=== PATIENT | female | born 2005 | race Caucasian/White ===

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

== ENCOUNTER 2023-02-05 19:26 | Emergency (ER) | payer OTHER, SELFPAY ==
[2023-02-05 19:45] VITALS: BP 139/76; PULSE 116; RESP 19; TEMP 36.9; O2SAT 99; BMI 31.3
[2023-02-05 19:48] LABS: Adenovirus,PCR Not Detected (NotDetected); Bordetella Pertussis Not Detected (NotDetected); Chlamydophila Pneumoniae, PCR Not Detected (NotDetected); Coronavirus 19, PCR Not Detected (NotDetected); Coronavirus 229E Not Detected (NotDetected); Coronavirus NL63 Not Detected (NotDetected); Coronavirus OC43 Not Detected (NotDetected); Coronovirus HKU1,PCR Not Detected (NotDetected); Human Metapneumovirus Not Detected (NotDetected); Influenza A, PCR Not Detected (NotDetected); Influenza AH1, 2009 Not Detected (NotDetected); Influenza AH1, PCR Not Detected (NotDetected); Influenza AH3,PCR Not Detected (NotDetected); Influenza B, PCR Not Detected (NotDetected); Mycoplasma Pneumoniae, PCR Not Detected (NotDetected); Parainfluenza 1, PCR Not Detected (NotDetected); Parainfluenza 2, PCR Not Detected (NotDetected); Parainfluenza 3, PCR Not Detected (NotDetected); Parainfluenza 4, PCR Not Detected (NotDetected); Respiratory Syncytial Virus Not Detected (NotDetected); Rhinovirus/Enterovirus Not Detected (NotDetected)
--- NOTE | 2023-02-05 19:49 | EXP.UTC ---
Discharge Plan Disposition Patient Disposition: Home, Self-Care Condition: Good Prescriptions Prescriptions: New ondansetron 4 mg tablet,disintegrating 4 mg PO Q8H PRN (Reason: nausea and vomiting) Qty: 6 0RF No Action escitalopram oxalate 20 mg tablet 20 mg PO DAILY Referrals Follow up/Referrals: Nicole Au PA [Primary Care Provider] - See instructions Activity Restrictions/Add. Instructions Additional Instructions/Restrictions: *Monitor Temp, Over the counter Motrin or Tylenol as directed/as needed Tylenol every 4 hours and Motrin every 6 hours (as long as your family doctor has told you that you can take it) for fever or pain. and straight to ER if unable to lower temp less than 101.0 after medication given *Warm salt water gargles may help to soothe the throat *Throat Lozenges? *Warm fluids like tea with honey may help to soothe the throat? *Sleep elevated *Humidifier/Vaporizer Your throat swab was sent for culture. Those results are typically sent to your primary care. Be sure to follow up in 2-3 days with your family doctor/primary care physician if no improvement so they can review those result and treat if necessary. If you don?t have a primary care doctor, I recommend you get one but in the mean time, you will have to return to a walk in clinic Follow up IMMEDIATELY for new or worsening symptoms or no Noticeable improvement over the next 48-72 hours. 911 for difficulty breathing or swallowing You were tested for today for Upper Respiratory Panel with COVID19 your test result should be back in the next 24hrs You may check your results on the [facility] Clinical Impressions Clinical Impression: Viral syndrome Stand Alone Forms Stand Alone Forms: Work/School Release Instructions Patient Instructions: DI for Viral Syndrome, DI for Nausea -- Adult Discharge ED Provider: Yolanda Magana [facility] [place] HPI General Stated complaint: Body aches,YEPEZ,vomiting,hot & cold Time Seen by Provider: 02/05/23 19:49 History of Present Illness Provider Complaint: Patient states that she started earlier with body aches, chills, scratchy throat and aching all over State that this evening she started with nausea and feeling like she is going to vomit so mother brought her in wanting to get her checked out Related Data Home Medications Medication Instructions Recorded Confirmed escitalopram oxalate 20 mg tablet 20 mg PO DAILY Anxiety 02/05/23 02/05/23 Previous Rx's Medication Instructions Recorded ondansetron 4 mg disintegrating 4 mg PO Q8H PRN nausea and 02/05/23 tablet vomiting #6 tabs Allergies Allergy/AdvReac Type Severity Reaction Status Date / Time chlorpheniramine Allergy Verified 01/16/23 18:12 [From Triaminic Cold and Cough] dextromethorphan Allergy Verified 01/16/23 18:12 [From Triaminic Cold and Cough] pseudoephedrine Allergy Verified 01/16/23 18:12 [From Triaminic Cold and Cough] [facility] Disclaimer: The information contained in this section may have been updated after the patient was seen, as this information can be updated by other users. Medical History Generalized anxiety disorder Generalized social phobia Social History Smoking Status: Never smoker alcohol intake: never substance use type: denies use current occupational status: student and other Travel in the last 8 weeks: None household members: family housing: house number of children: 0 ROS Obtained: Yes All systems reviewed & no additional complaints except as documented and Yes Systems reviewed as appropriate & no additional complaints except as documented Constitutional Constitutional: Reports system reviewed and no additional complaints, except as documented, Reports as per HPI, Reports body ache
[2023-02-05 20:19] LABS: UTC Pregnancy Test, Urine Negative (Negative)
[2023-02-05 20:20] LABS: UTC Strep Screen (Rapid) Negative (Negative)
[2023-02-05 20:39] VITALS: BP 139/76; PULSE 116; RESP 19; TEMP 36.9; O2SAT 99
== END 2023-02-05 20:41 | disposition home or self-care (01) ==
PROVIDERS: Emergency Provider Nurse Practitioner; PCP Physician Assistant
DX: B34.9 Viral infection, unspecified (principal); R51.9 Headache, unspecified; R11.0 Nausea; F41.9 Anxiety disorder, unspecified; F40.11 Social phobia, generalized
CPT/HCPCS: 81025; 87581; 87632; 87798; 87880; 99212; 99214; G0463

== ENCOUNTER 2023-02-06 02:16 | Emergency (ER) | payer OTHER, SELFPAY ==
[2023-02-06 02:17] VITALS: BP 124/75; PULSE 105; RESP 19; TEMP 36.7; O2SAT 97; BMI 38.3
--- NOTE | 2023-02-06 02:37 | HMH.EDGENADL ---
Discharge Plan Disposition Patient Disposition: Home, Self-Care Condition: Good Prescriptions Prescriptions: No Action escitalopram oxalate 20 mg tablet 20 mg PO DAILY ondansetron 4 mg tablet,disintegrating 4 mg PO Q8H PRN (Reason: nausea and vomiting) Qty: 6 0RF Referrals Follow up/Referrals: Nicole Au PA [Primary Care Provider] - See instructions Activity Restrictions/Add. Instructions Additional Instructions/Restrictions: You were evaluated in the emergency department today. Please follow-up with your primary care provider over the next 2 days. Return to the emergency department for any new or worsening symptoms, such as worsening headache, vision changes, numbness, tingling, or other concerns. Clinical Impressions Clinical Impression: Migraine Qualifiers: Migraine type: unspecified Status migrainosus presence: without status migrainosus Intractability: not intractable Qualified Code(s): G43.909 - Migraine, unspecified, not intractable, without status migrainosus Instructions Patient Instructions: DI for Migraine Discharge ED Provider: Miriam Lugo General Adult HPI General Chief complaint: Headache Stated complaint: migraine Time Seen by Provider: 02/06/23 02:18 History of Present Illness HPI narrative: This patient is a 17-year-old female with a history of anxiety, autism, and migraines presenting to the emergency department for evaluation with concern for migraine headache. Patient reports that she had gradual onset of a migraine after evaluation at [facility] here today for upper respiratory symptoms. Family at home have all had similar symptoms. She was nauseated there, so she was given oral Zofran. After this, she notes that she had gradual onset of headache that is in the front of her head radiating down to her jaw. She denies any vision changes, numbness, tingling, unilateral weakness, or other concerns. She is still nauseated. Related Data Home Medications Medication Instructions Recorded Confirmed escitalopram oxalate 20 mg tablet 20 mg PO DAILY Anxiety 02/05/23 02/05/23 Previous Rx's Medication Instructions Recorded ondansetron 4 mg disintegrating 4 mg PO Q8H PRN nausea and 02/05/23 tablet vomiting #6 tabs Allergies Allergy/AdvReac Type Severity Reaction Status Date / Time chlorpheniramine Allergy Verified 01/16/23 18:12 [From Triaminic Cold and Cough] dextromethorphan Allergy Verified 01/16/23 18:12 [From Triaminic Cold and Cough] pseudoephedrine Allergy Verified 01/16/23 18:12 [From Triaminic Cold and Cough] [facility] Disclaimer: The information contained in this section may have been updated after the patient was seen, as this information can be updated by other users. Medical History Generalized anxiety disorder Generalized social phobia Social History Smoking Status: Never smoker alcohol intake: never substance use type: denies use current occupational status: student and other Travel in the last 8 weeks: None household members: family housing: house number of children: 0 ROS Obtained: Yes All systems reviewed & no additional complaints except as documented Physical Exam General General appearance: alert and in no apparent distress Head Head exam: atraumatic and normocephalic Eye Eye exam: Present normal appearance, PERRL and EOMI; Absent conjunctival redness ENT ENT exam: Present normal exam, normal oropharynx and mucous membranes moist Neck Neck exam: Present normal inspection, full ROM and trachea midline; Absent tenderness or meningismus Chest Chest inspection: Present normal inspection and symmetric chest wall rise; Absent tenderness Respiratory Respiratory exam: Present normal lung sounds bilaterally; Absent respiratory distress, wheezes, stridor or accessory muscle us
[2023-02-06 03:51] VITALS: BP 124/75; PULSE 105; RESP 19; TEMP 36.7; O2SAT 97
== END 2023-02-06 03:50 | disposition home or self-care (01) ==
PROVIDERS: Emergency Provider Emergency Medicine; PCP Physician Assistant
DX: G43.909 Migraine, unspecified, not intractable, without status migrainosus (principal); F84.0 Autistic disorder; F41.1 Generalized anxiety disorder
CPT/HCPCS: 96361; 96374; 96375; 99284

== ENCOUNTER 2023-06-28 10:53 | Emergency (ER) | payer OTHER, SELFPAY ==
[2023-06-28 10:54] VITALS: BP 116/66; PULSE 93; RESP 19; TEMP 36.9; O2SAT 98; BMI 37.0
--- NOTE | 2023-06-28 11:19 | EXP.UTC ---
Discharge Plan Disposition Patient Disposition: Home, Self-Care Condition: Good Prescriptions Prescriptions: No Action escitalopram oxalate 20 mg tablet 20 mg PO DAILY Qty: 90 0RF ondansetron 4 mg tablet,disintegrating 4 mg PO Q8H PRN (Reason: nausea and vomiting) Qty: 6 0RF Referrals Follow up/Referrals: Nicole Au PA [Primary Care Provider] - See instructions Activity Restrictions/Add. Instructions Additional Instructions/Restrictions: *Monitor Temp, Over the counter Motrin or Tylenol as directed/as needed Tylenol every 4 hours and Motrin every 6 hours (as long as your family doctor has told you that you can take it) for fever or pain. and straight to ER if unable to lower temp less than 101.0 after medication given *Warm salt water gargles may help to soothe the throat *Throat Lozenges? *Warm fluids like tea with honey may help to soothe the throat? *Sleep elevated *Humidifier/Vaporizer Your throat swab was sent for culture. Those results are typically sent to your primary care. Be sure to follow up in 2-3 days with your family doctor/primary care physician if no improvement so they can review those result and treat if necessary. If you don?t have a primary care doctor, I recommend you get one but in the mean time, you will have to return to a walk in clinic Follow up IMMEDIATELY for new or worsening symptoms or no Noticeable improvement over the next 48-72 hours. 911 for difficulty breathing or swallowing Clinical Impressions Clinical Impression: Viral upper respiratory infection Instructions Patient Instructions: DI for Viral Upper Respiratory Infection -- Adult Discharge ED Provider: Yolanda Magana [facility] [place] HPI General Stated complaint: st, body ache, congestion, rincon Mode of Arrival: Ambulatory Source of Information: Patient Limitations: No Limitations Time Seen by Provider: 06/28/23 11:19 Description of Symptoms (Recalled from Triage Doc. by RN): Patient complaint of sore throat, body aches, and headache for 2 days. HEENT Symptoms (Recalled from RN notes): Yes Resp Symptoms (Recalled from RN notes): No Skin Symptoms (Recalled from RN notes): No MS Symptoms (Recalled from RN notes): No Functional Status (Recalled from RN notes): wnl History of Present Illness Provider Complaint: Patient states that for the last day or so she has been having sore throat, body aches, headache and chills States that last night her throat started hurting worse so she came in to get checked Related Data Previous Rx's Medication Instructions Recorded ondansetron 4 mg disintegrating 4 mg PO Q8H PRN nausea and 02/05/23 tablet vomiting #6 tabs escitalopram oxalate 20 mg tablet 20 mg PO DAILY Anxiety #90 tabs 06/07/23 Allergies Allergy/AdvReac Type Severity Reaction Status Date / Time chlorpheniramine Allergy Verified 04/17/23 10:06 [From Triaminic Cold and Cough] dextromethorphan Allergy Verified 04/17/23 10:06 [From Triaminic Cold and Cough] pseudoephedrine Allergy Verified 04/17/23 10:06 [From Triaminic Cold and Cough] Worker's Comp Is this a Worker's Comp case?: No [facility] Disclaimer: The information contained in this section may have been updated after the patient was seen, as this information can be updated by other users. Medical History Generalized anxiety disorder Generalized social phobia Social History Smoking Status: Never smoker alcohol intake: never substance use type: denies use current occupational status: student and other Travel in the last 8 weeks: None household members: family housing: house number of children: 0 ROS Obtained: Yes All systems reviewed & no additional complaints except as documented and Yes Systems reviewed as appropriate & no additional complaints except as documented Constitutional Constitutional: Reports system reviewed and no additional complaints, except as documented, Reports as per HPI, Reports body ache and Reports chills ENT Ears, Nose, Mouth, and Throat: Reports system reviewed and no additional complaints, except as documented, Reports as per HPI and Reports sore throat Cardiovascular Cardiovascular: Reports system reviewed and no additional complaints, except as documented and Reports as per HPI Respiratory Respiratory: Reports system reviewed and no additional complaints, except as documented and Reports as per HPI Gastrointestinal Gastrointestingal: Reports system reviewed and no additional complaints, except as documented and as per HPI Physical Exam General General appearance: alert and in no apparent distress ENT ENT exam: Present mucous membranes moist Expanded ENT Exam Nose exam: Absent sinus tenderness Throat exam: Present tonsillar erythema Respiratory Respiratory exam: Present normal lung sounds bilaterally; Absent respiratory distress or wheezes Cardiovascular Cardiovascular exam: Present regular rate, normal rhythm and normal heart sounds Abdominal Exam Abdominal exam: Present soft and normal bowel sounds; Absent distention or tenderness Neurological Exam Neurological exam: Present alert, oriented X3 and normal gait Medical Decision Making Alex Inquiry Pt receiving controlled substance: No Alex was queried for this patient: No Vital Signs: 06/28/23 10:54 Temperature 98.5 F Temperature Source Oral Pulse Rate [Radial] 93 H Respiratory Rate 19 Blood Pressure [Right Arm] 116/66 Blood Pressure Mean [Right Arm] 82 Blood Pressure Source [Right Arm] Automatic Cuff Blood Pressure Position [Right Arm] Sitting 02 Sat by Pulse Oximetry 98 Oxygen Delivery Method Room Air Lab Data Lab results reviewed: Yes I reviewed the patient's lab results.
[2023-06-28 11:32] LABS: UTC Influenza A Antigen Negative (Negative); UTC Influenza B Antigen Negative (Negative); UTC Strep Screen (Rapid) Negative (Negative)
[2023-06-28 11:46] VITALS: BP 116/66; PULSE 93; RESP 19; TEMP 36.9; O2SAT 98
== END 2023-06-28 11:47 | disposition home or self-care (01) ==
PROVIDERS: Emergency Provider Nurse Practitioner; PCP Physician Assistant
DX: R51.9 Headache, unspecified (principal); J06.9 Acute upper respiratory infection, unspecified; R07.0 Pain in throat; R09.81 Nasal congestion; M79.18 Myalgia, other site; R68.83 Chills (without fever); B34.9 Viral infection, unspecified
CPT/HCPCS: 87804; 87880; 99212; 99213; G0463

== ENCOUNTER 2023-10-11 11:50 | Emergency (ER) | payer OTHER, SELFPAY ==
[2023-10-11 12:00] VITALS: BP 111/62; PULSE 77; RESP 18; TEMP 36.8; O2SAT 96; BMI 39.4
[2023-10-11 12:14] LABS: Apearance,Urine Cloudy (Clear); Color,Urine Yellow (Yellow)
[2023-10-11 12:15] LABS: Bilirubin,Urine Negative (Negative); Blood, Urine 3+ (Negative); Glucose,Urine (UA) Negative (Negative); Ketones,Urine Negative (Negative); Protein,Urine Negative (Negative); UTC Leukocyte Esterase,Urine 3+ (Negative); UTC Nitrate,Urine Negative (Negative); Urobilinogen,Urine 0.2 EU/dl (0.2)
--- NOTE | 2023-10-11 12:17 | EXP.UTC ---
Discharge Plan Disposition Patient Disposition: Home, Self-Care Condition: Good Prescriptions Prescriptions: New phenazopyridine [Pyridium] 200 mg tablet 200 mg PO Q8H 2 Days Qty: 6 0RF sulfamethoxazole-trimethoprim [Bactrim DS] 800-160 mg Tablet 1 tab PO BID Qty: 14 0RF cephalexin 500 mg capsule 500 mg PO QID 7 Days Qty: 28 0RF mupirocin 2 % ointment 1 applic topical TID 7 Days Qty: 15 0RF No Action escitalopram oxalate 20 mg tablet 20 mg PO DAILY Qty: 90 1RF Referrals Follow up/Referrals: Nicole Au PA [Primary Care Provider] - See instructions Activity Restrictions/Add. Instructions Additional Instructions/Restrictions: Drink plenty of fluids. Take tylenol or ibuprofen for pain or fever. Take the medications as directed. Follow up with your regular doctor. GO TO THE ER FOR ANY WORSENING SYMPTOMS Apply the mupirocin ointment (bactroban) to your ear lobe as directed. The pyridium will make your urine turn orange, this is an expected side effect. It will stain your clothes if it comes into contact with them. We will culture the urine. That will tell what bacteria is causing your infection and which antibiotics will treat it best. Sometimes the first antibiotic we prescribe turns out to not work against different bacteria. So, make sure you follow up within 3 days if you are not getting better. Clinical Impressions Clinical Impression: UTI (urinary tract infection), Cervical adenopathy Instructions Patient Instructions: Urine Culture, DI for Urinary Tract Infection (UTI), DI for Lymphadenopathy, Phenazopyridine Discharge ED Provider: Ilya Murrell [facility] [place] HPI General Stated complaint: pain when urinating, knot behind right ear Mode of Arrival: Ambulatory Source of Information: Patient Limitations: No Limitations Time Seen by Provider: 10/11/23 12:17 Description of Symptoms (Recalled from Triage Doc. by RN): Pt's symptoms painful urination, pelvic pressure, and lumps behind right ear. HEENT Symptoms (Recalled from RN notes): Yes Resp Symptoms (Recalled from RN notes): No Skin Symptoms (Recalled from RN notes): No MS Symptoms (Recalled from RN notes): No Functional Status (Recalled from RN notes): n/a History of Present Illness Provider Complaint: She states that for the past 3 days she has had low back pain, urinary frequency, and dysuria. She also states that she has 2 enlarged lymph nodes on the right side of her neck just below her ear. These have been present for the past 5 days. Related Data Previous Rx's Medication Instructions Recorded escitalopram oxalate 20 mg tablet 20 mg PO DAILY Anxiety #90 tabs 09/11/23 cephalexin 500 mg capsule 500 mg PO QID 7 days #28 caps 10/11/23 mupirocin 2 % topical ointment 1 applic topical TID 7 days #15 10/11/23 grams phenazopyridine 200 mg tablet 200 mg PO Q8H 2 days #6 tabs 10/11/23 (Pyridium) sulfamethoxazole 800 1 tab PO BID #14 tabs 10/11/23 mg-trimethoprim 160 mg tablet (Bactrim DS) Allergies Allergy/AdvReac Type Severity Reaction Status Date / Time chlorpheniramine Allergy Verified 10/11/23 12:08 [From Triaminic Cold and Cough] dextromethorphan Allergy Verified 10/11/23 12:08 [From Triaminic Cold and Cough] pseudoephedrine Allergy Verified 10/11/23 12:08 [From Triaminic Cold and Cough] Worker's Comp Is this a Worker's Comp case?: No [facility] Disclaimer: The information contained in this section may have been updated after the patient was seen, as this information can be updated by other users. Medical History Generalized anxiety disorder Generalized social phobia Social History Smoking Status: Never smoker alcohol intake: never substance use type: denies use current occupational status: student and other Travel in the last 8 weeks: None household members: family housing: house number of children: 0 ROS Obtained: Yes All systems reviewed & no additional complaints except as documented Constitutional Constitutional: Denies chills and Denies fever(s) Eyes Eyes: Denies eye discharge ENT Ears, Nose, Mouth, and Throat: Denies dizziness, Denies otalgia and Denies sore throat Cardiovascular Cardiovascular: Denies chest pain Respiratory Respiratory: Denies shortness of breath, Denies chest congestion, Denies cough, Denies stridor and Denies wheezing Gastrointestinal Gastrointestingal: Denies nausea or vomiting Genitourinary Female Genitourinary: Reports as per HPI, Reports urinary frequency, Denies urinary incontinence, Reports urinary hesitancy and Reports urinary urgency Musculoskeletal Musculoskeletal: Reports as per HPI and Reports back pain Integumentary/Breasts Skin/Breast: Denies rash Neurologic Neurologic: Denies dizziness and Denies paresthesias Hematologic/Lymphatic Henatologic/Lymphatic: Reports lymphadenopathy Allergic/Immunologic Allergic/Immunologic: Denies wheezing Physical Exam General General appearance: alert and in no apparent distress Head Head exam: atraumatic and normocephalic Eye Eye exam: Present normal appearance, PERRL and EOMI ENT ENT exam: Present normal exam, mucous membranes moist, TM's normal bilaterally and normal external ear exam Neck Neck exam: Present full ROM, trachea midline, tenderness and lymphadenopathy; Absent meningismus Chest Chest inspection: Present normal inspection and symmetric chest wall rise; Absent tenderness Respiratory Respiratory exam: Present normal lung sounds bilaterally; Absent respiratory distress, wheezes or stridor Cardiovascular Cardiovascular exam: Present regular rate, normal rhythm and normal heart sounds Abdominal Exam Abdominal exam: Present soft and normal bowel sounds; Absent distention, tenderness, guarding, rebound, rigidity, incision, psoas sign, obturator sign, heel tap sign, Moreno's sign, Rovsing's sign or tenderness at McBurney's Point Extremities Exam Extremities exam: Present normal inspection, full ROM and normal capillary refill; Absent tenderness, edema, joint swelling, calf tenderness or cyanosis Back Exam Back exam: Present normal inspection and full ROM; Absent tenderness, CVA tenderness (R) or CVA tenderness (L) Neurological Exam Neurological exam: Present alert, oriented X3 and normal gait Psychiatric Psychiatric exam: Present normal affect and normal mood Skin Skin exam: Present warm, dry, intact and normal color Lymphatic Lymphatic Findings: no adenopathy Medical Decision Making Medical Records Medical records reviewed: No I reviewed the patient's medical records. Alex Inquiry Pt receiving controlled substance: No Vital Signs: 10/11/23 12:00 Temperature 98.2 F Temperature Source Oral Pulse Rate [Right Radial] 77 Respiratory Rate 18 Blood Pressure [Right Arm] 111/62 Blood Pressure Mean [Right Arm] 78 Blood Pressure Source [Right Arm] Automatic Cuff Blood Pressure Position [Right Arm] Sitting 02 Sat by Pulse Oximetry 96 Oxygen Delivery Method Room Air Lab Data Lab results reviewed: Yes I reviewed the patient's lab results. Lab Results 10/11/23 12:12: Urine Color Yellow, Urine Appearance Cloudy, Urine pH 6.0, Ur Specific [place] 1.020, Urine Protein Negative, Urine Glucose (UA) Negative, Urine Ketones Negative, Urine Blood 3+, Urine Nitrate Negative, Urine Bilirubin Negative, Urine Urobilinogen 0.2, Ur Leukocyte Esterase 3+ A Orders (Tests/Meds): ORDERS Category Date Time Status Urine Culture Stat Micro 10/11/23 12:12 Ordered
[2023-10-11 12:59] VITALS: BP 111/62; PULSE 77; RESP 18; TEMP 36.8; O2SAT 96
== END 2023-10-11 12:59 | disposition home or self-care (01) ==
PROVIDERS: Emergency Provider Nurse Practitioner Family; PCP Physician Assistant
DX: N39.0 Urinary tract infection, site not specified (principal); B96.1 Klebsiella pneumoniae [K. pneumoniae] as the cause of diseases classified elsewhere; M54.59 Other low back pain; R59.0 Localized enlarged lymph nodes; R30.0 Dysuria; F41.1 Generalized anxiety disorder; F40.11 Social phobia, generalized
CPT/HCPCS: 81003; 87086; 99212; 99214; G0463

== ENCOUNTER 2023-10-16 16:25 | Emergency (ER) | payer OTHER, SELFPAY ==
[2023-10-16 16:50] VITALS: BP 115/64; PULSE 101; RESP 18; TEMP 36.8; O2SAT 97; BMI 40.6
--- NOTE | 2023-10-16 16:56 | EXP.UTC ---
Discharge Plan Disposition Patient Disposition: Home, Self-Care Condition: Good Prescriptions Prescriptions: New amoxicillin-pot clavulanate 875-125 mg Tablet 1 tab PO Q12H Qty: 20 0RF No Action escitalopram oxalate 20 mg tablet 20 mg PO DAILY Qty: 90 1RF sulfamethoxazole-trimethoprim [Bactrim DS] 800-160 mg Tablet 1 tab PO BID Qty: 14 0RF cephalexin 500 mg capsule 500 mg PO QID 7 Days Qty: 28 0RF Referrals Follow up/Referrals: Nicole Au PA [Primary Care Provider] - See instructions Activity Restrictions/Add. Instructions Additional Instructions/Restrictions: Drink plenty of fluids. Take tylenol or ibuprofen for pain or fever. Stop the antibiotics (bactrim, cephalexin) that you are taking now, start the new antibiotic (augmentin). Follow up with your regular doctor. GO TO THE ER FOR ANY WORSENING SYMPTOMS Clinical Impressions Clinical Impression: Cervical lymphadenopathy, Acute viral syndrome Stand Alone Forms Stand Alone Forms: Work/School Release Instructions Patient Instructions: DI for Viral Syndrome, DI for Lymphadenopathy, Amoxicillin and Clavulanic Acid Discharge ED Provider: Ilya Murrell [facility] [place] General Stated complaint: YEPEZ,fever,congestion Time Seen by Provider: 10/16/23 16:56 History of Present Illness Provider Complaint: She states that she has had chills, malaise, low grade fever and a cough for the past 2 days. Related Data Previous Rx's Medication Instructions Recorded escitalopram oxalate 20 mg tablet 20 mg PO DAILY Anxiety #90 tabs 09/11/23 cephalexin 500 mg capsule 500 mg PO QID 7 days #28 caps 10/11/23 sulfamethoxazole 800 1 tab PO BID #14 tabs 10/11/23 mg-trimethoprim 160 mg tablet (Bactrim DS) amoxicillin 875 mg-potassium 1 tab PO Q12H #20 tabs 10/16/23 clavulanate 125 mg tablet Allergies Allergy/AdvReac Type Severity Reaction Status Date / Time chlorpheniramine Allergy Verified 10/16/23 17:04 [From Triaminic Cold and Cough] dextromethorphan Allergy Verified 10/16/23 17:04 [From Triaminic Cold and Cough] pseudoephedrine Allergy Verified 10/16/23 17:04 [From Triaminic Cold and Cough] [facility] Disclaimer: The information contained in this section may have been updated after the patient was seen, as this information can be updated by other users. Medical History Generalized anxiety disorder Generalized social phobia Social History Smoking Status: Never smoker alcohol intake: never substance use type: denies use current occupational status: student and other Travel in the last 8 weeks: None household members: family housing: house number of children: 0 ROS Obtained: Yes All systems reviewed & no additional complaints except as documented Constitutional Constitutional: Reports chills and Reports fever(s) Eyes Eyes: Denies eye discharge ENT Ears, Nose, Mouth, and Throat: Reports as per HPI Cardiovascular Cardiovascular: Denies chest pain Respiratory Respiratory: Denies chest congestion and Reports cough Gastrointestinal Gastrointestingal: Reports nausea; Denies abdominal pain, constipation, cramping, diarrhea or vomiting Musculoskeletal Musculoskeletal: Denies arthralgias Integumentary/Breasts Skin/Breast: Denies rash Neurologic Neurologic: Denies paresthesias Physical Exam General General appearance: alert and in no apparent distress Head Head exam: atraumatic, normocephalic and normal inspection Eye Eye exam: Present normal appearance, PERRL and EOMI ENT ENT exam: Present normal exam, normal oropharynx, mucous membranes moist, TM's normal bilaterally and normal external ear exam Neck Neck exam: Present normal inspection, full ROM and trachea midline; Absent meningismus or lymphadenopathy Chest Chest inspection: Present normal inspection and symmetric chest wall rise; Absent tenderness Respiratory Respiratory exam: Present normal lung sounds bilaterally; Absent respiratory distress Cardiovascular Cardiovascular exam: Present regular rate and normal rhythm; Absent JVD Abdominal Exam Abdominal exam: Present soft and normal bowel sounds; Absent distention, tenderness or guarding Extremities Exam Extremities exam: Present normal inspection, full ROM and normal capillary refill; Absent calf tenderness Back Exam Back exam: Present normal inspection; Absent tenderness Neurological Exam Neurological exam: Present alert and oriented X3 Psychiatric Psychiatric exam: Present normal affect and normal mood Skin Skin exam: Present warm, dry, intact and normal color Lymphatic Lymphatic Findings: no adenopathy Medical Decision Making Medical Records Medical records reviewed: No I reviewed the patient's medical records. Alex Inquiry Pt receiving controlled substance: No Lab Data Lab results reviewed: Yes I reviewed the patient's lab results.
[2023-10-16 17:25] LABS: UTC Strep Screen (Rapid) Negative (Negative)
[2023-10-16 17:49] LABS: UTC Influenza A Antigen Negative (Negative); UTC Influenza B Antigen Negative (Negative)
[2023-10-16 17:50] VITALS: BP 115/64; PULSE 101; RESP 18; TEMP 36.8; O2SAT 97
[2023-10-16 17:58] LABS: Adenovirus,PCR Not Detected (NotDetected); Coronavirus 19, PCR Not Detected (NotDetected); Coronavirus NL63 Not Detected (NotDetected); Coronavirus OC43 Not Detected (NotDetected); Coronovirus HKU1,PCR Not Detected (NotDetected); Human Metapneumovirus Not Detected (NotDetected); Influenza A, PCR Not Detected (NotDetected); Influenza AH1, 2009 Not Detected (NotDetected); Influenza AH1, PCR Not Detected (NotDetected); Influenza AH3,PCR Not Detected (NotDetected); Influenza B, PCR Not Detected (NotDetected); Parainfluenza 1, PCR Not Detected (NotDetected); Parainfluenza 2, PCR Not Detected (NotDetected); Parainfluenza 3, PCR Not Detected (NotDetected); Parainfluenza 4, PCR Not Detected (NotDetected); Respiratory Syncytial Virus Not Detected (NotDetected); Rhinovirus/Enterovirus Not Detected (NotDetected)
[2023-10-16 20:48] LABS: Coronavirus 229E Detected (NotDetected)
--- NOTE | 2023-10-17 09:35 | PC.NURSE ---
Called pt to discuss lab results and LM.
== END 2023-10-16 17:59 | disposition home or self-care (01) ==
PROVIDERS: Emergency Provider Nurse Practitioner Family; PCP Physician Assistant
DX: R59.0 Localized enlarged lymph nodes (principal); B34.2 Coronavirus infection, unspecified; R50.9 Fever, unspecified; R05.9 Cough, unspecified
CPT/HCPCS: 87632; 87635; 87804; 87880; 99212; 99214; G0463

== ENCOUNTER 2024-02-03 14:56 | Emergency (ER) | payer OTHER, SELFPAY ==
[2024-02-03 15:05] VITALS: BP 115/68; PULSE 83; RESP 20; TEMP 37.3; O2SAT 98; BMI 39.7
--- NOTE | 2024-02-03 15:20 | ED_ITS ---
Discharge Plan Disposition Patient Disposition: Home, Self-Care Condition: Good Prescriptions Prescriptions: New methylprednisolone [Medrol (Bro)] 4 mg tablets,dose pack See Rx Instructions .Route .COMPLEX 6 Days Qty: 21 0RF Rx Instructions: taper pack; methocarbamol 500 mg tablet 500 mg PO TID PRN (Reason: muscle spasm) Qty: 12 0RF No Action escitalopram oxalate 20 mg tablet 20 mg PO DAILY Qty: 90 1RF Referrals Follow up/Referrals: Nicole Au PA [Primary Care Provider] - See instructions Activity Restrictions/Add. Instructions Additional Instructions/Restrictions: Start oral steriod pack tomorrow *Ibuprofen olivia 6 hours with meal as needed for pain/inflammation *Remember you had a Toradol shot in the clinic today, which is similar to Motrin *Not additional anti-inflammatory like motrin, aleve, advil with the above amount of ibuprofen. You can still take Tylenol every 4 hours as needed if you need something else for pain *Ice 20 minutes every 2 hours for the first 48 hours after the initial injury followed by moist heat every 20 minutes 3-4 times a day to affected area *Muscle relaxer every 8 hours as needed for muscle spasms but remember, it WILL cause drowsiness You cannot take it and drive, operate machinery or care for small children. *Keep this area active, no movement leads to more stiffness, However take it easy and avoid heavy lifting pushing or pulling *Follow up with you family doctor if no improvement for further treatment Clinical Impressions Clinical Impression: Low back pain Qualifiers: Chronicity: unspecified Back pain laterality: bilateral Sciatica presence: u nspecified whether sciatica present Qualified Code(s): M54.50 - Low back pain, unspecified Instructions Patient Instructions: Low Back Pain, DI for Back Pain With Sciatica Print Language Print Language: Welsh Discharge ED Provider: Yolanda Magana [facility] General Stated complaint: back pain, no accident Mode of Arrival: Ambulatory Source of Information: Patient Limitations: No Limitations Time Seen by Provider: 02/03/24 15:20 Description of Symptoms (Recalled from Triage Doc. by RN): PATIENT C/O LOWER BACK PAIN THAT RADIATES DOWN TO BILATERAL KNEES FOR APPROX 1 WEEK. NO KNOWN INJURY HEENT Symptoms (Recalled from RN notes): No Resp Symptoms (Recalled from RN notes): No Skin Symptoms (Recalled from RN notes): No MS Symptoms (Recalled from RN notes): Yes Functional Status (Recalled from RN notes): WNL History of Present Illness Provider Complaint: Patient states that for the last week she has been having pain in her lower back that goes down back of legs to knee area denies known injury States that she is squatting down alot at work and not sure if she may have pulled something there so today when it was still bothering her she came in Related Data Previous Rx's ?Medication ?Instructions ?Recorded escitalopram oxalate 20 mg tablet 20 mg PO DAILY Anxiety #90 tabs 09/11/23 methocarbamol 500 mg tablet 500 mg PO TID PRN muscle spasm #12 02/03/24 tabs methylprednisolone 4 mg tablets in See Rx Instructions .Route 02/03/24 a dose pack (Medrol (Bro)) .COMPLEX 6 days #21 tabs Allergies Allergy/AdvReac Type Severity Reaction Status Date / Time chlorpheniramine Allergy Verified 10/16/23 17:04 [From Triaminic Cold and Cough] dextromethorphan Allergy Verified 10/16/23 17:04 [From Triaminic Cold and Cough] pseudoephedrine Allergy Verified 10/16/23 17:04 [From Triaminic Cold and Cough] Worker's Comp Is this a Worker's Comp case?: No [facility] Disclaimer: The information contained in this section may have been updated after the patient was seen, as this information can be updated by other users. Medical History Generalized anxiety disorder Generalized social phobia Social History Smoking Status: Never smoker alcohol intake: never substance use type: denies use current occupational status: student and other Travel in the last 8 weeks: None household members: family housing: house number of children: 0 ROS Obtained: Yes All systems reviewed & no additional complaints except as documented and Yes Systems reviewed as appropriate & no additional complaints except as documented Constitutional Constitutional: Reports system reviewed and no additional complaints, except as documented, Reports as per HPI and Denies fever(s) ENT Ears, Nose, Mouth, and Throat: Reports system reviewed and no additional complaints, except as documented and Reports as per HPI Cardiovascular Cardiovascular: Reports system reviewed and no additional complaints, except as documented and Reports as per HPI Respiratory Respiratory: Reports system reviewed and no additional complaints, except as documented and Reports as per HPI Gastrointestinal Gastrointestingal: Reports system reviewed and no additional complaints, except as documented and as per HPI Genitourinary Female Genitourinary: Reports system reviewed and no additional complaints, except as documented and Reports as per HPI Musculoskeletal Musculoskeletal: Reports system reviewed and no additional complaints, except as documented, Reports as per HPI, Reports back pain and Reports other Comments: Pain in lower back that goes into lower legs Physical Exam General General appearance: alert and in no apparent distress ENT ENT exam: Present mucous membranes moist Respiratory Respiratory exam: Present normal lung sounds bilaterally; Absent respiratory distress or wheezes Cardiovascular Cardiovascular exam: Present regular rate, normal rhythm and normal heart sounds Abdominal Exam Abdominal exam: Present soft and normal bowel sounds; Absent distention or tenderness Back Exam Back exam: Present tenderness Back 1 view image: 2 1. reports pain in lower back that goes down into her lower extremites worse with movement and trying to sit or lye on her side worse on her right Denies known injury Denies loss of control of bowel or bladder Comment: Denies loss of control of bowel or bladder Neurological Exam Neurological exam: Present alert, oriented X3 and normal gait Medical Decision Making Alex Inquiry Pt receiving controlled substance: No Alex was queried for this patient: No Vital Signs: 02/03/24 15:05 Temperature 99.1 F Temperature Source Oral Pulse Rate [Left Brachial] 83 Respiratory Rate 20 Blood Pressure [Left Arm] 115/68 Blood Pressure Mean [Left Arm] 83 Blood Pressure Source [Left Arm] Automatic Cuff Blood Pressure Position [Left Arm] Sitting 02 Sat by Pulse Oximetry 98 Oxygen Delivery Method Room Air Lab Data Lab results reviewed: Yes I reviewed the patient's lab results.
[2024-02-03 15:31] LABS: Apearance,Urine Clear (Clear); Bilirubin,Urine Negative (Negative); Blood, Urine Negative (Negative); Color,Urine Yellow (Yellow); Glucose,Urine (UA) Negative (Negative); Ketones,Urine Negative (Negative); PH,Urine 8.5 (5.0-8.5); Protein,Urine Negative (Negative); Specific Gravity, Urine 1.025 (1.005-1.030); UTC Leukocyte Esterase,Urine Negative (Negative); UTC Nitrate,Urine Negative (Negative); UTC Pregnancy Test, Urine Negative (Negative); Urobilinogen,Urine 1 EU/dl (0.2)
[2024-02-03] MEDS: METHYLPREDNISOLONE SOD SUCC 125MG VIAL 125 MG IM (15:49)
[2024-02-03] MEDS: KETOROLAC 30MG/ML VIAL 30 MG IM (15:50)
[2024-02-03 16:15] VITALS: BP 115/68; PULSE 83; RESP 20; TEMP 37.3; O2SAT 98
== END 2024-02-03 16:18 | disposition home or self-care (01) ==
PROVIDERS: Emergency Provider Nurse Practitioner; PCP Physician Assistant
DX: M54.50 Low back pain, unspecified (principal)
CPT/HCPCS: 81003; 81025; 96372; 99212; 99214; G0463; J1885; J2919

== ENCOUNTER 2024-06-05 16:41 | Emergency (ER) | payer OTHER, SELFPAY ==
[2024-06-05 17:20] VITALS: BP 107/77; PULSE 106; RESP 18; TEMP 37; O2SAT 97; BMI 40.8
[2024-06-05 17:40] LABS: UTC Strep Screen (Rapid) Negative (Negative)
--- NOTE | 2024-06-05 17:52 | EXP.UTC ---
Discharge Plan Disposition Patient Disposition: Home, Self-Care Condition: Good Prescriptions Prescriptions: New azithromycin [Zithromax] 250 mg tablet 250 mg PO UD DOSE PK Qty: 6 0RF Rx Instructions: Take two (2) tablets today, then one (1) tablet days #2 thru #5 benzonatate 100 mg capsule 100 mg PO TIDP PRN (Reason: Cough) Qty: 30 0RF No Action escitalopram oxalate 20 mg tablet 20 mg PO DAILY Qty: 90 1RF Referrals Follow up/Referrals: Ben Dietz DO [Primary Care Provider] - See instructions Activity Restrictions/Add. Instructions Additional Instructions/Restrictions: Drink plenty of fluids. Take tylenol or ibuprofen for pain or fever. Take the medications as directed. Follow up with your regular doctor. GO TO THE ER FOR ANY WORSENING SYMPTOMS Clinical Impressions Clinical Impression: Pharyngitis, Sinusitis Stand Alone Forms Stand Alone Forms: Work/School Release Instructions Patient Instructions: Sinusitis, DI for Sinusitis Print Language Print Language: Argentine Discharge ED Provider: Ilya Murrell [facility] [place] General Stated complaint: st congestion fever 101 Mode of Arrival: Ambulatory Source of Information: Patient Limitations: No Limitations Time Seen by Provider: 06/05/24 17:52 Description of Symptoms (Recalled from Triage Doc. by RN): PATIENT C/O SORE THROAT, FEVER AND NASAL CONGESTION SINCE YESTERDAY HEENT Symptoms (Recalled from RN notes): Yes Resp Symptoms (Recalled from RN notes): No Skin Symptoms (Recalled from RN notes): No MS Symptoms (Recalled from RN notes): No Functional Status (Recalled from RN notes): WNL Related Data Previous Rx's ?Medication ?Instructions ?Recorded escitalopram oxalate 20 mg tablet 20 mg PO DAILY Anxiety #90 tabs 05/24/24 azithromycin 250 mg tablet 250 mg PO UD DOSE PK #6 tabs 06/05/24 (Zithromax) benzonatate 100 mg capsule 100 mg PO TIDP PRN Cough #30 caps 06/05/24 Allergies Allergy/AdvReac Type Severity Reaction Status Date / Time chlorpheniramine (From Allergy Palpitation Verified 06/05/24 17:27 Triaminic Cold and Cough) s dextromethorphan (From Allergy Palpitation Verified 06/05/24 17:27 Triaminic Cold and Cough) s pseudoephedrine (From Allergy Palpitation Verified 06/05/24 17:27 Triaminic Cold and Cough) s Worker's Comp Is this a Worker's Comp case?: No [facility] Disclaimer: The information contained in this section may have been updated after the patient was seen, as this information can be updated by other users. Medical History Generalized anxiety disorder Generalized social phobia Social History Smoking Status: Never smoker alcohol intake: never substance use type: denies use current occupational status: student and other Travel in the last 8 weeks: None household members: family housing: house number of children: 0 ROS Obtained: Yes All systems reviewed & no additional complaints except as documented Constitutional Constitutional: Reports chills and Reports fever(s) Eyes Eyes: Denies eye discharge ENT Ears, Nose, Mouth, and Throat: Reports as per HPI Cardiovascular Cardiovascular: Denies chest pain Respiratory Respiratory: Denies chest congestion and Reports cough Gastrointestinal Gastrointestingal: Reports nausea; Denies abdominal pain, constipation, cramping, diarrhea or vomiting Musculoskeletal Musculoskeletal: Denies arthralgias Integumentary/Breasts Skin/Breast: Denies rash Neurologic Neurologic: Denies paresthesias Physical Exam General General appearance: alert and in no apparent distress Head Head exam: atraumatic, normocephalic and normal inspection Eye Eye exam: Present normal appearance, PERRL and EOMI ENT ENT exam: Present mucous membranes moist and normal external ear exam Expanded ENT Exam TM/Canal exam: Bilateral TM: erythema and bulging Nose exam: Absent sinus tenderness Mouth exam: Present normal external inspection; Absent drooling Teeth exam: Present normal inspection Throat exam: Present tonsillar erythema, tonsillomegaly and tonsillar exudate Neck Neck exam: Present normal inspection, full ROM and trachea midline; Absent tenderness, meningismus or lymphadenopathy Chest Chest inspection: Present normal inspection and symmetric chest wall rise; Absent tenderness Respiratory Respiratory exam: Present normal lung sounds bilaterally; Absent respiratory distress, wheezes, stridor or accessory muscle use Cardiovascular Cardiovascular exam: Present regular rate and normal rhythm; Absent systolic murmur or diastolic murmur Abdominal Exam Abdominal exam: Present soft and normal bowel sounds; Absent distention, tenderness, guarding, rebound or rigidity Extremities Exam Extremities exam: Present normal inspection and normal capillary refill; Absent calf tenderness Back Exam Back exam: Present normal inspection and full ROM; Absent tenderness, CVA tenderness (R) or CVA tenderness (L) Neurological Exam Neurological exam: Present alert, oriented X3 and CN II-XII intact Psychiatric Psychiatric exam: Present normal affect and normal mood Skin Skin exam: Present warm, dry, intact and normal color Medical Decision Making Medical Records Medical records reviewed: No I reviewed the patient's medical records. Screening: Per USPSTF and CDC recommendations, given the prevalence of disease in our region, it is our hospital?s policy to screen for HIV and viral Hepatitis for all patients aged 18 and over and those with ongoing risk factors. Alex Inquiry Pt receiving controlled substance: No Vital Signs: 06/05/24 17:20 Temperature 98.6 F Temperature Source Oral Pulse Rate [Left Brachial] 106 H Respiratory Rate 18 Blood Pressure [Left Arm] 107/77 L Blood Pressure Mean [Left Arm] 87 Blood Pressure Source [Left Arm] Automatic Cuff Blood Pressure Position [Left Arm] Sitting 02 Sat by Pulse Oximetry 97 Oxygen Delivery Method Room Air Lab Data Lab results reviewed: Yes I reviewed the patient's lab results. Lab Results 06/05/24 17:38: Strep Scn Rapid Clinic Negative Orders (Tests/Meds): ORDERS Category Date Time Status Strep Screen Confirmation Stat Micro 06/05/24 17:38 Received
[2024-06-05 18:02] VITALS: BP 107/77; PULSE 106; RESP 18; TEMP 37; O2SAT 97
== END 2024-06-05 18:06 | disposition home or self-care (01) ==
PROVIDERS: Emergency Provider Nurse Practitioner Family; PCP Internal Medicine
DX: J32.9 Chronic sinusitis, unspecified (principal); J02.9 Acute pharyngitis, unspecified; R50.9 Fever, unspecified; R09.81 Nasal congestion; R05.9 Cough, unspecified; R11.0 Nausea
CPT/HCPCS: 87880; 99212; G0381

== ENCOUNTER 2024-12-28 21:13 | Emergency (ER) | payer OTHER, SELFPAY ==
[2024-12-28 21:30] VITALS: BP 123/30; PULSE 83; O2SAT 97
[2024-12-28 21:33] VITALS: BP 127/90; PULSE 82; RESP 22; TEMP 36.9; O2SAT 95; BMI 41.3
--- NOTE | 2024-12-28 21:44 | ED_ITS ---
Discharge Plan Disposition Patient Disposition: Home, Self-Care Prescriptions Prescriptions: No Action escitalopram oxalate 20 mg tablet 20 mg PO DAILY Qty: 90 1RF azithromycin [Zithromax] 250 mg tablet 250 mg PO UD DOSE PK Qty: 6 0RF Rx Instructions: Take two (2) tablets today, then one (1) tablet days #2 thru #5 benzonatate 100 mg capsule 100 mg PO TIDP PRN (Reason: Cough) Qty: 30 0RF Referrals Follow up/Referrals: Provider,Referral, MD [Primary Care Provider, Medical] - See instructions Activity Restrictions/Add. Instructions Additional Instructions/Restrictions: Bacitracin ointment 3 times daily. Take Tylenol 1000 mg every 6 hours (4 times daily) and ibuprofen 400 mg every 6 hours (4 times daily) as needed with food and water to prevent GI upset and kidney damage. Be sure to range her fingers and stretch, flex, extend them throughout the day to prevent tightening up of the skin. Call your family doctor to establish care for this visit to the emergency department and schedule follow-up within 48 hours to ensure improvement. If you have any worsening of your condition or any other concerning signs or symptoms, return to the emergency department or your primary care doctor for further evaluation. Clinical Impressions Clinical Impression: Burn of skin due to hot oil Print Language Print Language: Russian Discharge ED Provider: Francis Ross General Adult HPI General Chief complaint: Burn/Smoke Inhalation Stated complaint: stuck hand in hot oil Time Seen by Provider: 12/28/24 21:16 Mode of Arrival: Ambulatory Source of Information: Patient Description of Symptoms (Recalled from ER Triage Doc. by RN): pt reports she was making cheese sticks when she slipped and her ring finger and middle finger on her right hand went into the fryer approx. 20 mins ago. History of Present Illness HPI narrative: Please note that above description of symptoms, in this electronic medical record under categorization of recalled from ER triage doctor by RN are reflective of an initial nursing assessment, however, is not reflective of my full history and physical exam that was personally taken and clarified. Consequentially, this preceding description of symptoms, which may include the patient's categorized chief complaint in the EMR, do not reflect my personal clinical impression, and the ultimate description of history of present illness and patient stated complaints should be deferred to this section of the note. Unless stated otherwise or congruent with this section of the note, additional signs, symptoms, or incongruence should be interpreted as inaccurate with my clinical impression. Related Data Previous Rx's ?Medication ?Instructions ?Recorded azithromycin 250 mg tablet 250 mg PO UD DOSE PK #6 tab s 06/05/24 (Zithromax) benzonatate 100 mg capsule 100 mg PO TIDP PRN Cough #3 0 caps 06/05/24 escitalopram oxalate 20 mg tablet 20 mg PO DAILY Anxie ty #90 tabs 12/12/24 Allergies Allergy/AdvReac Type Severity Reaction Status Date / Time chlorpheniramine (From Allergy Palpitation Verified 06/05/24 17:27 Triaminic Cold and Cough) s dextromethorphan (From Allergy Palpitation Verified 06/05/24 17:27 Triaminic Cold and Cough) s pseudoephedrine (From Allergy Palpitation Verified 06/05/24 17:27 Triaminic Cold and Cough) s [facility] Disclaimer: The information contained in this section may have been updated after the patient was seen, as this information can be updated by other users. Medical History Generalized anxiety disorder Generalized social phobia Social History Smoking Status: Never smoker alcohol intake: never substance use type: denies use current occupational status: student and other Travel in the last 8 weeks?: None household members: family housing: house number of children: 0 Have you lived/traveled outside US in past 30 days?: No Contact w/someone who lives/traveled outside US past 30 days?: No Exposure to someone with infectious disease in past 14 days?: No Do you have a fever (greater than 100.4 F or 38 C)?: No Have you tested positive for COVID-19?: No Exposed to someone with COVID-19 in past 14 days?: No Do you have a sore throat?: No Do you have a cough?: No Do you have any weakness?: No Do you have any diarrhea?: No Are you experiencing any unusual bleeding?: No Do you have any muscle aches/pain?: No Do you have any abdominal pain?: No Are you experiencing loss of taste or smell?: No Other Medical History Have you received the Flu Vaccine for this season: No Have you received the Pneumonia Vaccine: No ROS Obtained: Yes All systems reviewed & no additional complaints except as documented Physical Exam General General appearance: alert and in distress (Secondary to pain, tearful) Head Head exam: atraumatic and normocephalic Eye Eye exam: Present normal appearance, PERRL and EOMI Neck Neck exam: Present normal inspection, full ROM and trachea midline Respiratory Respiratory exam: Absent respiratory distress, wheezes, stridor, accessory muscle use or prolonged expiratory phase Cardiovascular Cardiovascular exam: Present other (Pulses equal symmetric in upper and lower extremities) Abdominal Exam Abdominal exam: Present soft; Absent distention, tenderness or pulsatile mass Extremities Exam Extremities exam: Present other (Superficial partial-thickness piña on the dorsal aspects of digits 1 and 2); Absent edema Neurological Exam Neurological exam: Present alert, oriented X3 and CN II-XII intact; Absent motor sensory deficit Skin Skin exam: Present warm and dry; Absent diaphoresis or erythema Medical Decision Making Medical Records Medical records reviewed: Yes I reviewed the patient's medical records. Screening: Per USPSTF and CDC recommendations, given the prevalence of disease in our region, it is our hospital?s policy to screen for HIV and viral Hepatitis for all patients aged 18 and over and those with ongoing risk factors. Alex Inquiry Pt receiving controlled substance: No Alex was queried for this patient: No Vital Signs: 12/28/24 21:33 Temperature 98.4 F Temperature Source Oral Pulse Rate [Right] 82 Respiratory Rate 22 Blood Pressure [Right Arm] 127/90 Blood Pressure Mean [Right Arm] 102 02 Sat by Pulse Oximetry 95 Oxygen Delivery Method Room Air Medical Decision Narrative: 19-year-old female presenting with oil burn. She states that she was cooking mozzarella sticks, accidentally dipped her fingers in the oil when she was dropping them into the hot oil. Came in for further evaluation. This happened about 20 minutes prior to arrival. Up-to-date on vaccinations. Put antibiotic ointment on them. Did not take any medications. On my evaluation, she has superficial partial-thickness piña with blistering on the dorsal aspects of digits 1 and 2 of her right hand. Otherwise no palmar skin involvement. Sensation is intact, range of motion intact. No further workup deemed necessary. Patient was given bacitracin zinc ointment and wounds were dressed. Recommended follow-up with family doctor. Patient had ibuprofen in her purse, took 600 mg after being instructed to do so. Also given 10 mg Decadron. Discharged in hemodynamically stable condition with close outpatient follow-up precautions and return precautions. [employer] Engineer disclaimer Much of this encounter note is an electronic assistant wrestling coach spoken language to printed text. Electronic assistant wrestling coach of the spoken language may permit errors. Although I have reviewed the note, some errors may still exist. Critical Care Critical Care Time Critical Care Time: No
[2024-12-28] MEDS: DEXAMETHASONE 4MG TABLET 10 MG PO (21:53)
[2024-12-28] MEDS: BACITRACIN ZINC OINT 30GM TUBE TP (21:53)
[2024-12-28 21:55] VITALS: BP 123/86; PULSE 72; RESP 20; TEMP 36.7; O2SAT 98
== END 2024-12-28 22:01 | disposition home or self-care (01) ==
PROVIDERS: Emergency Provider Emergency Medicine
DX: T23.231A Burn of second degree of multiple right fingers (nail), not including thumb, initial encounter (principal); X10.2XXA Contact with fats and cooking oils, initial encounter
CPT/HCPCS: 99283; J8540